=== PATIENT | female | born 1985 | race Caucasian/White ===

== ENCOUNTER 2024-05-27 10:53 | Outpatient (REF) | payer OTHER, SELFPAY ==
--- NOTE | ~2024-05-27 | US_ITS ---
EXAMINATION: US DIAGNOSTIC ULTRASOUND BREAST, BILATERAL CLINICAL INFORMATION: Right breast palpable lump 1:00 axis, 7 cm from the nipple. Here for yearly bilateral screening as well. Patient refuses mammography. Screening and diagnostic ultrasonography. COMPARISON: None available. Baseline study. TECHNIQUE: Ultrasound of the bilateral breasts performed with real-time marino scale imaging and color Doppler. Both breasts were scanned including all 4 quadrants, the retroareolar and axillary regions. A special attention was given to the palpable focus 1:00 right breast. FINDINGS: In the right breast, 11:00 axis, 7 cm from the nipple, there is a minimally complicated cyst with through transmission, measuring 7 x 4 x 7 mm. This correlates with the focus of palpable concern and is benign. In the left breast, 11:00 axis, 3 cm from the nipple, a small 4 mm simple cyst is present. This is benign. There is no focal suspicious finding. There is no solid mass, architectural abnormality, duct ectasia, or abnormal soft tissue shadowing. No axillary abnormalities. Results are discussed with the patient at time of visit. US/US breast BI limited mamm only IMPRESSION: -No findings suspicious for malignancy in either breast. -Small benign cysts bilaterally, of which one correlates with the palpable focus right breast 1:00 axis. -Recommend patient resume routine annual screening. ASSESSMENT: BI-RADS 2: Benign RECOMMENDATION: Routine annual mammography screening. Electronically signed by: Mahendra Person MD 05/27/2024 01:07 PM SHANNON JOHN
== END 2024-05-27 10:54 | disposition home or self-care (01) ==
LOC: HO.MAMMO 10:53
PROVIDERS: PCP Internal Medicine; Visit Provider Internal Medicine
DX: N63.10 Unspecified lump in the right breast, unspecified quadrant (principal); N60.02 Solitary cyst of left breast; N60.01 Solitary cyst of right breast
CPT/HCPCS: 76642

== ENCOUNTER → 2024-05-27 11:00 | Outpatient (BNV) | payer OTHER, SELFPAY | PROVIDERS: PCP Internal Medicine; Visit Provider Radiology Diagnostic Radiology | DX: N63.12 Unspecified lump in the right breast, upper inner quadrant (principal) | CPT/HCPCS: 76642 ==

== ENCOUNTER 2025-04-25 08:27 | Outpatient (AMB) | payer BC, SELFPAY ==
--- NOTE | 2025-04-25 07:46 | MHC.PC.OV ---
Intake Visit Reasons: Annual-altonke pt - see comments Medical Receptionist Medical Assistant Required: No Accompanied by: Self / Same As Patient Allergies No Known Allergies Allergy (Verified 04/25/25 07:46) Tobacco use date assessed: 04/25/25 Dental Screening Dental Screen Date: 04/25/25 Coding
--- NOTE | 2025-04-25 08:29 | MHC.PC.OV ---
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 Accompanied by: Self / Same As Patient Allergies hydroxyzine (From Vistaril) Allergy (Verified 04/25/25 08:32) Swelling meperidine (From Demerol) Allergy (Verified 04/25/25 08:32) Swelling Medication List - Last Reconciled 04/25/25 by Miguelangel Montalvo MD oxybutynin chloride 5 mg PO QID Tobacco use date assessed: 04/25/25 Dental Screening Dental Screen Date: 04/25/25 Did you have a dental visit in the last 12 months?: Yes Did you have a dental problem in the last 6 months where you did not have access to dental care?: No Was dental information given to patient?: Patient has dentist HPI HPI Comments History of Present Illness Details The patient is a 40-year-old female presenting with symptoms that have progressed since radha COVID-19 in May 2023. She has a longstanding history of spina bifida diagnosed at , with surgical interventions including spine closure and a leg surgery to address abnormal ligament positioning in her left leg. At age 10, she underwent a procedure related to vesicoureteral reflux, experiencing improved function subsequently. However, she requires self-catheterization four times daily due to neurogenic bladder resulting from spina bifida, which also affects her bowel and causes left leg weakness. Post-COVID, she reports an exacerbation of fatigue and weakness predominantly affecting her left leg. The fatigue limits her ability to navigate stairs, necessitating her bedroom relocation to the first floor for activity accommodation. The patient denies neurological symptoms such as headaches or balance issues, although she experiences weakness. The COVID infection also caused neuropathic pain, primarily in her hands, leading to occasional walker use for extended ambulation. Wrist and finger discomfort is present secondary to possible carpal tunnel or nerve compression from frequent walker use, although there is no current muscle atrophy indicating air pollution specialist strength loss. Pain management is mainly with Tylenol. Additionally, she reports mild nasal drainage for which she previously took Benadryl. Medical History: - Spina bifida - Neurogenic bladder with self-catheterization - Left leg weakness secondary to spina bifida - Vesicoureteral reflux post-surgical intervention - Long COVID syndrome Surgical History: - Spinal closure surgery at - Ligament correction surgery in left leg - Vesicoureteral reflux corrective surgery at age 10 Medications: - Oxybutynin 4 times daily for bladder spasticity Family History: - No known family history of cancer, heart disease, or diabetes Social History: - Non-smoker, but smoked marijuana occasionally; denies regular tobacco and alcohol use - Grew up in a secondhand smoking environment - Works as an lead sustainability specialist for diabetes at [employer] - Lives in own home, independent living arrangements [facility] Medical History (Updated 04/25/25 @ 09:00 by Miguelangel Montalvo MD) Allergic rhinitis Neurogenic bladder Long COVID Spina bifida Social History Housing: House Patient Tobacco Use Status: Never used Tobacco e-Cigarette/Vaping Use: Never Used service: No Current occupational status: employed Current occupation: lead sustainability specialist Questionnaire PHQ-9 Over the last 2 weeks, how often have you been bothered by any of the following problems? 1. Little interest or pleasure in doing things: not at all 2. Feeling down, depressed, or hopeless: not at all 3. Trouble falling or staying asleep, or sleeping too much: not at all 4. Feeling tired or having little energy: not at all 5. Poor appetite or overeating: not at all 6. Feeling bad about yourself - or that you are a failure or have let yourself or your family down: not at all 7. Trouble concentrating on things, such as reading the newspaper or watching television: not at all 8. Moving or speaking so slowly that other people could have noticed. Or the opposite - being so fidgety or restless that you have been moving around a lot more than usual: not at all 9. Thoughts that you would be better off or of hurting yourself in some way: not at all Total score: 0 Depression Screening Interpretation: Negative Depression Screening Done: Yes 17613 - PHQ-9 Billing: Yes Source: Developed by Drs. Coy Luu, Corin Pérez, Yonathan Mccracken and colleagues, with an educational eliseo from [employer]. Thrive Questionnaire Date Thrive assessed: 04/25/25 I am a: Patient What is your living situation today?: I have a steady place to live Within the past 12 months, did the food you bought not last and you didn't have the money to get more?: Never true Within the past 12 months, did you worry whether your food would run out before you got money to buy more?: Never true Do you have trouble paying for medicines?: No Do you have trouble getting transportation to medical appointments?: No Do you have trouble paying your heating and electricity bill?: No Do you have trouble taking care of your child, family member or friend?: No Do you have trouble with day-to-day activities such as bathing, preparing meals, shopping, managing finances, etc.?: No Are you currently unemployed and looking for a job?: No Are you interested in more education?: No THRIVE Score: 0 AUDIT C Alcohol Use Questionnaire (AUDIT-C) 1. How often do you have a drink containing alcohol?: Never 3. How often do you have six or more drinks on one occasion?: Never Total Score: 0 Score Reviewed/Action Taken: Yes KELSI-7 AMB Questionnaire KELSI-7 Date KELSI - 7 assessed: 04/25/25 Feeling nervous, anxious, or on edge: 0 = Not at all Not being able to stop or control worryin = Not at all Worrying too much about different things: 0 = Not at all Trouble relaxin = Not at all Being so restless that it is hard to sit still: 0 = Not at all Becoming easily annoyed or irritable: 0 = Not at all Feeling afraid as if something awful might happen: 0 = Not at all Total KELSI-7 score (0-4 normal; 5-9 mild; 10-14 moderate; 15-21 severe): 0 Source: Developed by Drs. Coy Luu, Corin Pérez, Yonathan Mccracken and colleagues, with an educational eliseo from [employer]. KELSI-7 Assessment Billing KELSI-7 Assessment Tool: KELSI-7 Assessment 10992 Review of Systems Const Details: - Constitutional: Denies nausea, vomiting, chest pain - Neurological: Denies headaches or balance issues but reports fatigue, left leg weakness - Respiratory: Denies shortness of breath - Genitourinary: Reports neurogenic bladder issues - Musculoskeletal: Reports hand pain possibly due to neuropathy - Psychological: Denies anxiety and depression but has future-oriented concerns All systems reviewed & are unremarkable except as reviewed in HPI and above Physical exam (Primary Care) Vital Signs: Last Vital Signs Temp 98.1 F 04/25/25 08:36 Pulse 82 04/25/25 08:36 Resp 16 04/25/25 08:36 BP 108/70 04/25/25 08:36 Pulse Ox 96 04/25/25 08:36 Oxygen Delivery Method Room Air 04/25/25 08:36 BMI result Body Mass Index 18.7 Tobacco/Smoking Status: Tobacco use Status Tobacco use date assessed 04/25/25 04/25/25 08:37 Patient Tobacco Use Status Never used Tobacco 04/25/25 08:37 e-Cigarette/Vaping Use Never Used 04/25/25 08:37 PHQ-9: PHQ-9 Score PHQ-9: Total score 0 04/25/25 08:47 Depression Screening Interpretation: Negative Thrive Assessment: Date of Thrive Assessment Date Thrive assessed 04/25/25 04/25/25 08:37 Const Other: General: +Alert and oriented, Well nourished, No acute distress. Eye: Pupils are equal, round and reactive to light, Intact accommodation, Extraocular movements are intact, Normal conjunctiva, Vision unchanged. HENT: Normocephalic, Atraumatic, Tympanic membranes are clear, Normal hearing, Oral mucosa is moist, No pharyngeal erythema, Ear canals patent. Respiratory: Lungs CTA bilaterally, No wheeze, Respirations are non-labored. Cardiovascular: Regular rate, Regular rhythm, S1 auscultated, S2 auscultated, No murmur, Good pulses equal in all extremities, Normal peripheral perfusion, No edema. Gastrointestinal: Soft, Non-tender, Non-distended, Normal bowel sounds, No organomegaly. Musculoskeletal: Normal range of motion, Normal strength, No tenderness, No swelling, No deformity, Normal gait. Weakness and fatigue noted in the left leg, uses a walker for long distances. Integumentary: Warm, Dry, [place], Intact. Neurologic: Alert, Oriented, Normal sensory, Normal motor function, No focal defects, Cranial Nerves II-XII are grossly intact, Normal deep tendon reflexes. No control over bladder and bowel due to spina bifida. Psychiatric: Cooperative, Appropriate mood & affect, Normal judgment. Mild anxiety about future health, but no depression or significant anxiety affecting lifestyle. Coding Level of Care Code New Pt Level 4 (17135) Diagnoses Spina bifida, unspecified hydrocephalus presence, unspecified spinal region Q05.9 Spinal region: unspecified Presence of hydrocephalus: unspecified hydrocephalus presence Long COVID U09.9 Neurogenic bladder N31.9 Seasonal allergic rhinitis, unspecified trigger J30.2 Allergic rhinitis trigger: unspecified Allergic rhinitis seasonality: seasonal Additional Codes KELSI-7 Assessment Billing - KELSI-7 Assessment Tool: KELSI-7 Assessment 03398 ([id number]) PHQ-9 - 73215 - PHQ-9 Billing: Yes ([id number]) Assessment & Plan Assessment & Plan (1) Spina bifida: Comment: - Continued management with oxybutynin for bladder control. - Self-catheterization reinforced four times daily. - No new surgical intervention recommended due to nonsurgical status. Code(s): Q05.9 - Spina bifida, unspecified Category: Medical Qualifiers: Spinal region: unspecified Presence of hydrocephalus: unspecified hydrocephalus presence Qualified Code(s): Q05.9 - Spina bifida, unspecified (2) Long COVID: Comment: - Continue monitoring fatigue and progressive weakness, especially in the left leg. - Discussed management strategies to accommodate reduced physical capability. - Goal to gradually increase activity without exacerbation of symptoms. Code(s): U09.9 - Post COVID-19 condition, unspecified Category: Medical (3) Neurogenic bladder: Comment: - Oxybutynin prescription to be refilled to ensure bladder stability, with concern noted for potential long-term cognitive effects. Code(s): N31.9 - Neuromuscular dysfunction of bladder, unspecified Category: Medical (4) Allergic rhinitis: Comment: - Trial loratadine as a safer alternative to Benadryl due to central nervous system penetration limitations. - Suggested potential introduction of montelukast if loratadine proves ineffective. Code(s): J30.9 - Allergic rhinitis, unspecified Category: Medical Qualifiers: Allergic rhinitis trigger: unspecified Allergic rhinitis seasonality: seasonal Qualified Code(s): J30.2 - Other seasonal allergic rhinitis Plan: Healthcare maintenance: - Recommended allergy management and risk reduction strategies for neuropathy. - Discussed physical activity adjustments to prevent fatigue. - Emphasized importance of regular follow-ups for chronic condition management. Patient was informed and verbally consented to the use of an ambient scribe for clinic note documentation during this visit. Plan During our discussion, I confirmed the patient's spina bifida and the associated long-term neurogenic bladder and left-sided weakness. I explained the long-term management strategies, emphasizing regular self-catheterization and the use of oxybutynin despite concerns of possible cognitive effects. We discussed that her symptoms of fatigue and weakness might be attributed to long COVID syndrome, focusing on the need for activity modulation and monitoring symptoms. I suggested using loratadine for allergic symptoms, avoiding Benadryl due to central nervous system implications, and considered montelukast if further intervention is needed. I addressed her concerns regarding neuropathic symptoms in her hands, suggesting wrist splints as preventive care. Orders: Orders Complete Blood Count Auto Diff Today Z76.89 - Persons encountering health services in other specified circumstances Vitamin D 25-OH Total Today Z76.89 - Persons encountering health services in other specified circumstances Syphilis Screen Today Z76.89 - Persons encountering health services in other specified circumstances HIV Ab/Ag Today Z76.89 - Persons encountering health services in other specified circumstances Hepatitis A,B,C Profile Today Z76.89 - Persons encountering health services in other specified circumstances Comprehensive Met. Panel Today Z76.89 - Persons encountering health services in other specified circumstances Hemoglobin A1c Today Z76.89 - Persons encountering health services in other specified circumstances TSH reflex Free T4 Today Z76.89 - Persons encountering health services in other specified circumstances Lipid Panel Today Z76.89 - Persons encountering health services in other specified circumstances IRON PROFILE Today Z76.89 - Persons encountering health services in other specified circumstances Medications: New oxybutynin chloride 5 mg PO QID 360 tabs 3RF 90 days Patient Instructions: - Continue using oxybutynin four times a day for your bladder condition. - Perform self-catheterization four times daily as usual. - Use loratadine daily for allergy symptoms; avoid Benadryl. - Wear wrist splints when necessary to prevent nerve compression. - Monitor for signs of muscle weakness or air pollution specialist strength decline. - Adjust activities to manage fatigue and avoid overexertion. - Schedule routine follow-ups to monitor your conditions. - Reach out for any significant changes in symptoms or concerns.
[2025-04-25 08:36] VITALS: BP 108/70; PULSE 82; RESP 16; TEMP 36.7; O2SAT 96; BMI 18.7
== END 2025-04-25 09:00 | disposition home or self-care (01) ==
LOC: HO.HMCHD 08:28
PROVIDERS: PCP Student in an Organized Health Care Education/Training Program; Visit Provider Student in an Organized Health Care Education/Training Program
DX: Q05.9 Spina bifida, unspecified (principal); U09.9 Post COVID-19 condition, unspecified; N31.9 Neuromuscular dysfunction of bladder, unspecified; J30.2 Other seasonal allergic rhinitis

== ENCOUNTER → 2025-04-25 08:27 | Outpatient (BNVA) | payer BC, SELFPAY | PROVIDERS: PCP Student in an Organized Health Care Education/Training Program; Visit Provider Student in an Organized Health Care Education/Training Program | DX: U09.9 Post COVID-19 condition, unspecified (principal); N31.9 Neuromuscular dysfunction of bladder, unspecified; J30.2 Other seasonal allergic rhinitis; Q05.9 Spina bifida, unspecified; Z79.899 Other long term (current) drug therapy; Z13.31 Encounter for screening for depression; Z13.39 Encounter for screening examination for other mental health and behavioral disorders | CPT/HCPCS: 96127 ==